=== PATIENT | male | born 1990 | race Caucasian/White ===

== ENCOUNTER 2018-04-13 06:41 | Emergency (ER) | payer MEDICAID ==
[2018-04-13 06:47] VITALS: BP 151/92
[2018-04-13] MEDS ORDERED: LIDOCAINE 2% 10 ML MDV ONE (07:10)
[2018-04-13] MEDS ORDERED: cephALEXin 250 MG CAPSULE PO STA (07:11)
--- NOTE | 2018-04-13 07:14 | ED Physician Documentation ---
PD HPI LOWER EXT INJURY - Stated complaint Stated Complaint: R TOE PX - Chief complaint Chief Complaint: Ext Problem - History obtained from History obtained from: Patient, Family - History of Present Illness PD HPI LOW EXT INJURY LOCATION: Left, Toe Where injury occurred: Home Timing - onset: How many weeks ago (4) Timing - details: Gradual onset, Still present Worsened by: Moving, Palpating Similar symptoms before: Has not had sx before Recently seen: Not recently seen - Additional information Additional information: Patient is a 27 year old male with no significant past medical history who is presenting to the emergency department for toe pain and swelling. According to patient and mother over the last few weeks patient has had a worsening ingrown nail with discharge. Patient tried to ignore it but today he states that the pain is almost unbearable. Patient denies fever, chills, nausea or vomiting or a history of diabetes. Review of Systems Ten Systems: 10 systems reviewed and negative Constitutional: denies: Fever, Chills Musculoskeletal: reports: Extremity pain, Extremity swelling Immunocompromised: denies: Immunocompromised PD PAST MEDICAL HISTORY - Past Medical History Past Medical History: Yes Other Past Medical History: Bilat Inguinal Hernia - Past Surgical History Past Surgical History: No - Present Medications Home Medications: Ambulatory Orders Medication Instructions Recorded Confirmed Cephalexin [Keflex] 500 mg PO Q6H 7 Days capsule 04/13/18 - Allergies Allergies/Adverse Reactions: Allergies Allergy/AdvReac Type Severity Reaction Status Date / Time No Known Drug Allergies Allergy Verified 04/13/18 06:54 - Social History Does the pt smoke?: No Smoking Status: Never smoker Does the pt drink ETOH?: Yes Does the pt have substance abuse?: No - Immunizations Immunizations are current?: Yes - POLST Patient has POLST: No PD ED PE NORMAL - Vitals Vital signs reviewed: Yes - General General: Alert and oriented X 3, No acute distress - HEENT HEENT: Atraumatic - Neck Neck: Supple, no meningeal sign - Cardiac Cardiac: RRR - Respiratory Respiratory: No respiratory distress - Neuro Neuro: Alert and oriented X 3 Eye Opening: Spontaneous - Psych Psych: Normal mood PD ED PE EXPANDED - Extremities Extremities: Right toe(s) (tenderness, swelling and erythema of right 1st digit) Results - Vitals Vitals: Vital Signs - 24 hr 04/13/18 06:45 Temperature 36.1 C L Heart Rate 73 Respiratory 16 Rate Blood Pressure 151/92 H O2 Saturation 100 Oxygen O2 Source Room air Procedures - General procedure General procedure: partial toenail removal - Regional nerve block Nerve block site: Digital - note digit(s) (right foot, first digit) Right / left: Right Nerve block anesthesia: Lidocaine 2% Nerve block aftercare: Excellent anesthesia, Patient tolerated well, No complications PD MEDICAL DECISION MAKING - ED course Complexity details: reviewed old records, re-evaluated patient, considered differential, d/w patient, d/w family ED course: Patient was seen and examined at bedside. Digital block was performed and patient's toenail was partially removed. Patient was started on antibiotics. Patient was given detailed discharge and follow up instructions. Patient required no further work up and was stable for discharge with outpatient follow up. Departure - Departure Disposition: 01 Home, Self Care Clinical Impression: Ingrown toenail of left foot with infection Condition: Good Instructions: ED Toenail Ingrown Infec Abx Onl Follow-Up: primary,care provider [Other] - Within 1 week Prescriptions: Cephalexin [Keflex] 500 mg PO Q6H 7 Days capsule Comments: Your symptoms today are being caused by an infected foot. the edges of the toenail have been removed. You will need to wash your foot with soap and water and keep it clean and dry. you should cover it while at work and change your socks on a regular basis. You will take antibiotics 4 times a day. You can take motrin or tylenol as needed for pain. You should follow up with your doctor if your symptoms persist. you may return to the emergency department at any time for new, worsening or uncontrollable symptoms. Discharge Date/Time: 04/13/18 07:54
== END 2018-04-13 07:54 | disposition home or self-care (01) ==
LOC: ED 06:41
DX: L60.0 Ingrowing nail (principal); L08.9 Local infection of the skin and subcutaneous tissue, unspecified; E11.9 Type 2 diabetes mellitus without complications
CPT/HCPCS: 11730; 99283; A9270

== ENCOUNTER 2018-06-15 19:15 | Emergency (ER) | payer MEDICAID ==
[2018-06-15] MEDS ORDERED: BUFFERED LIDOCAINE 10 ML SYRINGE SUBQ STA (19:36)
--- NOTE | 2018-06-15 20:28 | ED Physician Documentation ---
History of Present Illness - Stated complaint Stated Complaint: INGROWN RT GREAT TOENAIL - Chief complaint Chief Complaint: General - History obtained from History obtained from: Patient, Family (mom) - History of Present Illness Timing: Other (2 months of right great toenail being ingrown. He is already had a cut on both sides once.) Review of Systems Constitutional: denies: Fever, Chills Cardiac: reports: Reviewed and negative Respiratory: reports: Reviewed and negative GI: reports: Reviewed and negative PD PAST MEDICAL HISTORY - Past Surgical History Past Surgical History: No - Present Medications Home Medications: Ambulatory Orders Medication Instructions Recorded Confirmed Cephalexin [Keflex] 500 mg PO Q6H 7 Days capsule 04/13/18 Amox/Clav 875/125 [Augmentin] 1 each PO Q12H #14 tablet 06/15/18 - Allergies Allergies/Adverse Reactions: Allergies Allergy/AdvReac Type Severity Reaction Status Date / Time No Known Drug Allergies Allergy Verified 06/15/18 19:21 - Social History Does the pt smoke?: No Smoking Status: Never smoker Does the pt drink ETOH?: Yes Does the pt have substance abuse?: No - Immunizations Immunizations are current?: Yes - POLST Patient has POLST: No PD ED PE NORMAL - Vitals Vital signs reviewed: Yes - General General: Alert and oriented X 3, No acute distress - Extremities Extremities: Other (There is actually only about the third of the toenail left in the middle because of the cuts on either side, the lateral side is ingrown but not infected and the medial side is ingrown and infected) - Neuro Neuro: Alert and oriented X 3, Normal speech - Psych Psych: Normal mood, Normal affect Results - Vitals Vitals: Vital Signs - 24 hr 06/15/18 19:19 Temperature 36.9 C Heart Rate 105 H Respiratory 16 Rate Blood Pressure 145/87 H O2 Saturation 99 Oxygen O2 Source Room air Procedures - General procedure General procedure: After informed consent the right great toe was anesthetized with a digital block with buffered lidocaine and then because there was basically no normal nail left the entirety of the toenail was removed using blunt dissection and cauterized at the base. PD MEDICAL DECISION MAKING - Sepsis Event Vital Signs: Vital Signs - 24 hr 06/15/18 19:19 Temperature 36.9 C Heart Rate 105 H Respiratory 16 Rate Blood Pressure 145/87 H O2 Saturation 99 Oxygen O2 Source Room air Departure - Departure Disposition: Home, Self Care Clinical Impression: Ingrown nail of great toe of right foot Condition: Good Record reviewed to determine appropriate education?: Yes Instructions: ED Ingrown Toenail Excised Prescriptions: Amox/Clav 875/125 [Augmentin] 1 each PO Q12H #14 tablet Comments: Call your doctor to arrange a follow-up appointment, make the next available appointment. In the interim, return anytime if worse or if new symptoms develop. Your blood pressure was elevated today on check into the emergency department. This does not mean that you have hypertension, it is a common phenomenon to come to the emergency department and have elevated blood pressure. I recommend that you see your primary care physician within the week to have it rechecked when you are feeling better.
[2018-06-15] MEDS ORDERED: AMOX/CLAV 875 MG/125 MG TABLET PO STA (20:52)
[2018-06-15 21:03] VITALS: BP 140/80
== END 2018-06-15 21:02 | disposition home or self-care (01) ==
LOC: ED 19:15
DX: L60.0 Ingrowing nail (principal); L03.032 Cellulitis of left toe; L08.89 Other specified local infections of the skin and subcutaneous tissue
CPT/HCPCS: 11765; 99283; A9270